=== PATIENT | female | born 1960 | race Caucasian/White ===

== ENCOUNTER → 2024-04-20 14:15 | Outpatient (REF) | payer MEDICARE, OTHER, SELFPAY | LOC: WDC 14:15 | PROVIDERS: ATTENDING PHYSICIAN Student in an Organized Health Care Education/Training Program; FAMILY PHYSICIAN Physician Assistant Medical | DX: Z12.31 Encounter for screening mammogram for malignant neoplasm of breast (principal) | CPT/HCPCS: 77063; 77067 ==

== ENCOUNTER → 2024-06-06 11:05 | Outpatient (REF) | payer MEDICARE, OTHER, SELFPAY | LOC: HWRCS 11:05 | PROVIDERS: ATTENDING PHYSICIAN Internal Medicine Cardiovascular Disease; FAMILY PHYSICIAN Physician Assistant Medical | DX: I25.810 Atherosclerosis of coronary artery bypass graft(s) without angina pectoris (principal); I48.0 Paroxysmal atrial fibrillation; I45.10 Unspecified right bundle-branch block; I34.0 Nonrheumatic mitral (valve) insufficiency | CPT/HCPCS: 93306 ==